=== PATIENT | female | born 1990 | race Caucasian/White ===

== ENCOUNTER 2019-08-01 23:57 | Emergency (ER) | payer OTHER ==
[2019-08-02 00:07] VITALS: BP 136/84
--- NOTE | 2019-08-02 00:40 | ER Document Report ---
ED GI/ - General Chief Complaint: Vaginal Bleeding Stated Complaint: VAGINAL BLEEDING / 14 WEEKS Time Seen by Provider: 08/02/19 00:07 Mode of Arrival: Ambulatory Information source: Patient Notes: 29-year-old female who states she is approximately 14 weeks with no previous medical problems presents emergency room with vaginal bleeding. Patient states she was having intercourse with her about 30 minutes after she had some bleeding and passed a clot. States she is lightly bleeding but has not gone through 4 pads to happen. Denies any pain. She is a 1. [facility]. States she had an ultrasound approximately 4 weeks ago states it was a normal ultrasound. Has not had any complications. - Related Data Allergies/Adverse Reactions: morphine Allergy (Verified 08/02/19 01:04) Home Medications: Propanolol. Doxylamine/Pyridoxine. [email or web address] Past Medical History - General Information source: Patient - Social History Smoking Status: Never Smoker Chew tobacco use (# tins/day): No Frequency of alcohol use: None Drug Abuse: None Lives with: Family Family History: Reviewed & Not Pertinent Patient has suicidal ideation: No Patient has homicidal ideation: No Review of Systems - Review of Systems Constitutional: No symptoms reported EENT: No symptoms reported Cardiovascular: No symptoms reported Respiratory: No symptoms reported Gastrointestinal: No symptoms reported Genitourinary: No symptoms reported Female Genitourinary: , Vaginal bleeding Musculoskeletal: No symptoms reported Skin: No symptoms reported Neurological/Psychological: No symptoms reported -: Yes All other systems reviewed and negative Physical Exam - Vital signs Vitals: Temp 98.7 F 08/01/19 23:59 - General General appearance: Appears well, Alert In distress: Mild - HEENT Head: Normocephalic, Atraumatic Eyes: Normal Pupils: PERRL - Respiratory Respiratory status: No respiratory distress Chest status: Nontender Breath sounds: Normal Chest palpation: Normal - Cardiovascular Rhythm: Regular Heart sounds: Normal auscultation Murmur: No - Abdominal Inspection: Normal Distension: No distension Bowel sounds: Normal Tenderness: Nontender Organomegaly: No organomegaly - Genitourinary External exam: Normal Speculum exam: Cervix closed Vaginal bleeding: Mild Bimanuel exam: Normal, Uterus enlarged. No: Cervical motion tender, Adnexal tenderness - Back Back: Normal, Nontender - Neurological Neuro grossly intact: Yes Cognition: Normal Orientation: AAOx4 Brandy Coma Scale Eye Opening: Spontaneous Brandy Coma Scale Verbal: Oriented Brandy Coma Scale Motor: Obeys Commands [place]gate Coma Scale Total: 15 Speech: Normal Motor strength normal: LUE, RUE, LLE, RLE Sensory: Normal - Skin Skin Temperature: Warm Skin Moisture: Dry Skin Color: Normal Course - Re-evaluation Re-evalutation: 08/02/19 02:17 Patient is resting comfortably minimal vaginal bleeding. Reviewed all test results with patient. Counseled on pelvic rest. Call her [employer] tomorrow for follow-up appointment. She was given strict return to the emergency room guidelines. Return for any increasing bleeding pain or new symptoms. All questions were answered. Patient verbalized understanding and agrees with plan of care. - Vital Signs Vital signs: Temp Pulse Resp BP Pulse Ox 98.7 F 102 H 18 136/84 H 100 08/02/19 00:06 08/02/19 00:06 08/02/19 00:06 08/02/19 00:06 08/02/19 00:06 - Laboratory Result Diagrams: 08/02/19 00:48 08/02/19 00:48 Laboratory results interpreted by me: 08/02/19 08/02/19 00:14 00:48 BUN 6 L Beta HCG, Quant 52337.00 H Urine Blood LARGE H Discharge - Discharge Clinical Impression: Threatened , Subchorionic bleed Condition: Stable Disposition: HOME, SELF-CARE Instructions: Threatened Miscarriage ([facility]) Additional Instructions: Pelvic rest, no sexual intercourse until seen by [employer] [facility], call your [employer] cruz rrow. Return for any new or worsening symptoms.
[2019-08-02 01:13] LABS: APPEARANCE,URINE CLEAR; BILIRUBIN,URINE NEGATIVE (NEGATIVE); COLOR,URINE STRAW; GLUCOSE, URINE NEGATIVE (NEGATIVE); KETONES,URINE NEGATIVE (NEGATIVE); LEUKOCYTE ESTERASE,URINE NEGATIVE (NEGATIVE); NITRITE,URINE NEGATIVE (NEGATIVE); PROTEIN,URINE NEGATIVE (NEGATIVE); URINE SPECIFIC GRAVITY 1.006; UROBILINOGEN,URINE NEGATIVE mg/dL (<2.0)
[2019-08-02 01:13] LABS: ABSOLUTE BASOPHILS # (AUTO) 0.1 10^3/uL (0.0-0.2); ABSOLUTE EOSINOPHILS # (AUTO) 0.1 10^3/uL (0.0-0.6); ABSOLUTE LYMPHOCYTES (AUTO) 1.6 10^3/uL (0.5-4.7); ABSOLUTE MONOCYTES (AUTO) 0.5 10^3/uL (0.1-1.4); ABSOLUTE NEUT (AUTO) 7.4 10^3/uL (1.7-8.2); BASOPHILS % (AUTO) 0.7 % (0-2); EOSINOPHILS % (AUTO) 0.5 % (0-6); HEMOGLOBIN 13.8 g/dL (12.0-15.5); LYMPHOCYTES % (AUTO) 16.9 % (13-45); MEAN CORPUSCULAR HEMOGLOBIN 32.3 pg (27.0-33.4); MEAN CORPUSCULAR HGB CONC 35.4 g/dL (32.0-36.0); MEAN CORPUSCULAR VOLUME 91 fl (80-97); MONOCYTES % (AUTO) 5.3 % (3-13); PLATELET COUNT 245 10^3/uL (150-450); RED BLOOD COUNT 4.28 10^6/uL (3.72-5.28); RED CELL DISTRIBUTION WIDTH 12.7 % (11.5-14.0); SEGMENTED NEUTROPHILS % (AUTO) 76.6 % (42-78); TOTAL CELLS COUNTED % (AUTO) 100 %; WHITE BLOOD COUNT 9.6 10^3/uL (4.0-10.5)
[2019-08-02 01:22] LABS: ALBUMIN 4.1 g/dL (3.5-5.0); ALKALINE PHOSPHATASE 69 U/L (38-126); ANION GAP 10 (5-19); ASPARTATE AMINO TRANSFERASE 26 U/L (14-36); BILIRUBIN,TOTAL 0.5 mg/dL (0.2-1.3); BLOOD UREA NITROGEN 6 mg/dL (7-20); CALCIUM 9.7 mg/dL (8.4-10.2); CARBON DIOXIDE 24 mmol/L (22-30); CHLORIDE 104 mmol/L (98-107); GLUCOSE 98 mg/dL (75-110); POTASSIUM 3.8 mmol/L (3.6-5.0); TOTAL PROTEIN 6.7 g/dL (6.3-8.2)
--- NOTE | 2019-08-02 01:37 | RADIOLOGY REPORT (SQ) ---
EXAM DESCRIPTION: US LESS THAN 14 WEEKS COMPLETED DATE/TME: 08/02/2019 00:36 CLINICAL HISTORY: 29 years, Female, vaginal bleeding COMPARISON: None. TECHNIQUE: Emergent first trimester ultrasound LIMITATIONS: None. FINDINGS: The uterus measures 13.2 x 8.1 x 8.6 cm. There is an intrauterine gestational sac with pole. Heart tones obtained at 168 bpm. The maternal right ovary measures 3.4 x 2.4 x 2.0 cm, the left 3.0 x 2.2 x 2.2 cm. Normal flow to each ovary. There is a 2.3 x 1.0 cm hypoechoic area adjacent to the gestational sac which could reflect small subchorionic hemorrhage. Current ultrasound age is 13 weeks 6 days. Assessment of the amniotic fluid volume and placenta is not performed due to early gestational age IMPRESSION: Single, live intrauterine gestation with ultrasound age 13 weeks 6 days. Possible small subchorionic hemorrhage. Nonemergent follow-up recommended copyright 2010 [email or web address]- All Rights Reserved
== END 2019-08-02 02:34 | disposition home or self-care (01) ==
LOC: ER 23:57
DX: O20.0 Threatened abortion (principal); Z3A.14 14 weeks gestation of pregnancy; Z88.8 Allergy status to other drugs, medicaments and biological substances; Z79.899 Other long term (current) drug therapy
CPT/HCPCS: 36415; 76801; 80053; 81001; 84702; 85025; 86900; 86901; 93976; 99284